=== PATIENT | female | born 1965 | race Caucasian/White ===

== ENCOUNTER → 2019-05-09 | Outpatient (CLI) | payer BC ==
--- NOTE | 2019-05-09 17:38 | PCVCIMAG ---
APPROVED REPORT Study performed: 05/09/2019 15:57:21 Exam: Stress Echocardiogram Indication: CAD , Hyperlipidemia, Chest pain , Dyspnea Patient Location: Echo lab Stress Nurse: Binta Quintanilla RN Room #: 2 Status: routine Ht: 5 ft 4 in HR: 81 bpm BP: 142/86 mmHg Rhythm: NSR Medical History Medical History: CAD non obstructive Cardiac Risk Factors: Hyperlipidemia Previous Cardiac Procedures: none Pretest Chest Pain Characteristics: No chest pain Exercise History: Indeterminate Procedure The patient underwent an Exercise Stress Test using the Edwin Protocol. Blood pressure, heart rate, and EKG were monitored. An Echocardiogram was performed by production line technician in four stages in quad fashion. At peak stress, four selected images were obtained and placed side by side with resting images for comparison. Stress Test Details Stress Test: Exercise stress testing was performed using a Edwin protocol. HR Resting HR: 83 bpmMax Heart Rate (APMHR): 167 bpm Max HR Achieved: 148 bpmTarget HR (85% APMHR): 141 bpm % of APMHR: 88 Recovery HR: 87 bpm HR response to stress: Normal HR response to stress BP Resting BP: 142/86 mmHg Max BP: 168/80 mmHg Recovery BP: 124/72 mmHg BP response to stress: Normal blood pressure response to stress. ECG Resting ECG: Sinus Rhythm Stress ECG: Sinus Rhythm ST Change: Non-ischemic Maximum ST Deviation: -0.95 mm Arrhythmia: Rare PAC, PVCs Recovery ECG: Sinus Rhythm Recovery ST Change: Non-ischemic Recovery ST Deviation: -0.80 mm Recovery Arrhythmia: Rare PACs Clinical Reason for Termination: Maximal effort Stress Symptoms: none Exercise duration: 8 min 07 sec Highest Stage Achieved: Stage 3: 3.4 mph at 14% grade. Exercise capacity: 10.1 METs Overall Exercise Capacity for Age: Good Scale: Active Angina Score: None No complications. Stress ECG Conclusion The patient exercised according to the EDWIN protocol for 8:07 mins; achieving a work level of 10.1 METS. The resting heart rate of 81 bpm lachelle to a maximum heart rate of 148 bpm. This value represent 88% of the maximal, age-predicted heart rate. The resting blood pressure of142/86 mmHg, lachelle to a maximum blood pressure of 168/80 mmHg. The exercise test was stopped due to fatigue. Bautista Treadmill Score is 12.8 which is Low risk. Pre-Stress Echo The resting Echocardiogram showed normal left ventricular contractility with an estimated Ejection Fraction of about 55-60%. Normal wall motion in all segments on baseline images. Post-Stress Echo The stress Echocardiogram showed normal left ventricular contractility with an estimated Ejection Fraction of about 65-70%. Normal augmentation of wall motion in all segments on post stress images. Clinical No clinical or ECG evidence for ischemia. Conclusion Clinical Response: Non-ischemic Exercise Capacity: Average Stress ECG Response: Non-ischemic Stress Echo Images: Non-ischemic No clinical, EKG or echocardiographic evidence for ischemia. No echocardiographic evidence for exercise induced ischemia. Normal stress echocardiogram with maximal exercise stress. Normal color doppler. No regurgitation or stenosis present on pulmonic, mitral, tricuspid or aortic valves. <Conclusion> No clinical, EKG or echocardiographic evidence for ischemia. No echocardiographic evidence for exercise induced ischemia. Normal stress echocardiogram with maximal exercise stress. Normal color doppler. No regurgitation or stenosis present on pulmonic, mitral, tricuspid or aortic valves.
== END | disposition home or self-care (01) ==
LOC: PCVCIMAG 15:43
PROVIDERS: ATTEND Internal Medicine Cardiovascular Disease
DX: I25.10 Atherosclerotic heart disease of native coronary artery without angina pectoris (principal); R07.89 Other chest pain; R93.1 Abnormal findings on diagnostic imaging of heart and coronary circulation; R06.02 Shortness of breath
CPT/HCPCS: 93325; 93351